=== PATIENT | female | born 1955 | race Caucasian/White ===

== ENCOUNTER 2020-05-12 11:06 | Day surgery (SDC) | payer OTHER ==
[~2020-05-12] VITALS: Ht 155 cm; Wt 58.0 kg
[2020-05-12] VITALS (10 sets, daily range): BP systolic 113–134; BP diastolic 54–97
[2020-05-12] MEDS ORDERED: NS IV 1000 ML 1,000 ML IV SCH ×2 (11:17→14:54)
[2020-05-12] MEDS ORDERED: HEParin (CATH LAB) 2,000 ML IV ONE (11:22)
[2020-05-12] MEDS ORDERED: NS IV 1000 ML 1,000 ML ONE (11:22)
[2020-05-12] MEDS ORDERED: LIDOCAINE 1% INJ 20 ML 20 ML VIAL ONE (11:22)
[2020-05-12 11:48] LABS: MEAN PLATELET VOLUME 10.5 FL (7.4-10.4); RED CELL DISTRIBUTION WIDTH 11.6 % (10.0-14.5); WHITE BLOOD COUNT 6.2 10^3/uL (4.3-11.0)
[2020-05-12] MEDS ORDERED: MV-M1TAB20 PO (11:53)
[2020-05-12] MEDS ORDERED: OMEP40CA27 PO (11:53)
[2020-05-12] MEDS ORDERED: LEVO50TA6 PO (11:53)
[2020-05-12] MEDS ORDERED: CYCL10TA9 PO (11:53)
[2020-05-12] MEDS ORDERED: FLUT9.9S NS (11:53)
[2020-05-12] MEDS ORDERED: ASPI-586 PO (11:53)
[2020-05-12] MEDS ORDERED: METO100T12 PO (11:53)
[2020-05-12] MEDS ORDERED: CLOP75TA69 PO (11:53)
[2020-05-12] MEDS ORDERED: CANA1TAB6 PO (11:53)
[2020-05-12] MEDS ORDERED: OMG1KC PO (11:53)
[2020-05-12 12:01] LABS: INR 0.9 (0.8-1.4); PROTHROMBIN TIME PATIENT 12.8 SEC (12.2-14.7)
[2020-05-12 12:08] LABS: ALANINE AMINOTRANSFERASE 38 U/L (0-55); ALBUMIN 4.7 GM/DL (3.2-4.5); ALKALINE PHOSPHATASE 76 U/L (40-136); BILIRUBIN,TOTAL 0.5 MG/DL (0.1-1.0); BUN/CREATININE RATIO 16; CALCIUM 9.9 MG/DL (8.5-10.1); CARBON DIOXIDE 30 MMOL/L (21-32); CHLORIDE 100 MMOL/L (98-107); CHOLESTEROL 287 MG/DL (< 200); CREATININE SERUM 0.93 MG/DL (0.60-1.30); GFR ESTIMATED > 60; GLUCOSE 134 MG/DL (70-105); HDL CHOLESTEROL 49 MG/DL (40-60); POTASSIUM 3.9 MMOL/L (3.6-5.0); SODIUM 140 MMOL/L (135-145); TOTAL PROTEIN 7.7 GM/DL (6.4-8.2); TRIGLYCERIDES 213 MG/DL (<150); VLDL CHOLESTEROL 43 MG/DL (5-40)
--- OUTSIDE RECORDS SUMMARY | 2020-05-12 13:01 | XMS REPORT | Continuity of Care Document ---
Author Author [facility] Organization [facility] Address [facility] [address] [place] [address] Phone Unavailable Support Name Relationship Address Phone MARY FLEMING MD Caregiver [address] [place] [address] CHARLIE MORTENSEN MD Caregiver [address] [place] [address] Unavailable DEVON CASTILLO MD Caregiver [address] [place] [address] LEILA GOOD Next Of Kin [address] [place] [address] NA Insurance Providers Payer Name Policy Number Subscriber Name Relationship Blue Cross/Blue Shield [id number] Will Good 01 [employer] Advance Directives Directive Response Recorded Date/Time Do you have an Advanced Directive? No 07/17 7:38am Advance Directives No 08/23/15 4:40pm Living Will No 08/23/15 4:40pm Health Care Proxy No 08/24/15 1:06pm Power of Retail Pharmacy Merchandiser for Health Care No 4:40pm Organ, Tissue, or Eye Donor No 08/23/15 4:4 0pm Do you have a signed organ donor card? No 0 04/06/01 7:18am Chief Complaint and Reason for Visit Chief Complaint CHEST PAIN,SHORTNESS OF EDWARD TH Reason for Visit Palpitations Shortness of breath Problems Active Problems Medical Problem Onset Date Status Chest pain Unknown Acute Gastroenteritis Unknown Acute Gastroenteritis Unknown Acute Medication side effects Unknown Acute Palpitations Unknown Acute Shortness of breath Unknown Acute Medications Current Home Medications Medication Dose Units Route Directions Days/Qty Instructions Star t Date Amlodipine Besylate 10 Mg 10 Mg Oral Daily 03/19/13 Omeprazole 40 Mg 40 Mg Oral Daily 3 Aspirin 81 Mg 81 Mg Oral Daily 08/21/15 Metformin Hcl 1 000 1,000 Mg Oral Twice A Day 60 08/21/15 Past Home Medications Medication Directions Ordered Status Metformin Hcl 1 000 Tablet, 1000 Mg Oral Twice A Day 4 Discontinued Ondansetron* 4 Mg/Tab Tab.rapdis, 4 Mg Oral Four Times Daily as needed for Nausea 11/03/14 Discontinued Promethazine Hcl 25 Mg Tablet, 25 Mg Oral As Needed Discontinued Acetaminophen/Hydrocodone Bitart (Lortab 7.5-325 Tab*) 1 Tab Tablet, 1 Each Oral Every 6 Hrs As Needed For Pain 04/10/15 Discontin ued Promethazine Hcl 25 Mg Tablet, 25 Mg Oral Twice A Day Discontinued Oxycodone Hcl/Acetaminophen* 1 Tab Tablet, 1-2 Ea Oral 3-4 Times Daily As Needed 04/17/15 Discontinued Promethazine Hcl 25 Mg Tablet, 25 Mg Oral Three Times Daily As N eeded 06/05/15 Discontinued Glimepiride 4 Mg Tablet, 4 Mg Oral Daily 08/21/15 Discontinued Social History Social History Problem Response Recorded Date/Ivan e Smoking Status Former smoker 08/24/2015 6:39pm Alcohol Use none 08/24/2015 1:38pm Sexual History Heterosexual 03/19/2013 7:25am Employment Employed 08/24/2015 6:39pm Query Response Start Date Stop Date Smoking Status Former smoker Hospital Discharge Instructions Discharge Instructions Provider Instructions Make Appointment with: Dr. Alamo [phone] Other: at [facility] Diet: Diabetic Smoking Cessation If you are a smoker, the following is recommended: Stop all tobacco use; for help quitting, please call [phone]. Notify Physician If: Shortness of Breath, Fever Greater 100.5 F, Chest Pain Plan of Care Discharge Date 08/25/15 10:22am Disposition 02 XFER SHT-TRM (ACUTE) HOSP Instructions/Education Provided 2 Gram Sodium Diet (GE N) Prescriptions See Medication Section Care Plan and Goals See Discharge Instructions S ection Functional Status Query Response Date Recorded [place] Coma Scale Total 15 August 25, 2015 1:18pm Patient Behavior Cooperative Appropriate August 24, 2015 9:04pm Allergies, Adverse Reactions, Alerts Allergen Type Severity Reaction Status Last Updated Morphine Allergy Unknown Active 08/24/15 Codeine Allergy Unknown Active 08/24/15 Tetracycline Allergy Unknown Active 08/24/15 Doxycycline Allergy Unknown Active 08/24/15 Clindamycin Allergy Unknown Active 08/24/15 Promethazine Allergy Unknown IV Active 08/24/15 Immunizations Name Given Type Hx Diphtheria, Pertussis, Tetanus Vaccination Unknown Historical Hx Influenza Vaccination No Historical Hx Pneumococcal Vaccination No Historical Vital Signs Acute Vital Signs Vital Response Date/Time Temperature (Fahrenheit) 97.7 degrees F (97.6 - 99.5) 2014 5:16am Temperature Source Temporal Artery 08/25/2015 5:16am Pulse Rate (adult) 74 bpm (60 - 90) 08/25/2015 1:18pm Respiratory Rate 20 bpm (12 - 24) 08/25/2015 1:18pm Blood Pressure 126/70 mm Hg 08/25/2015 11:03am O2 Sat by Pulse Oximetry 98 % (90 - 100) 08/25/2015 11:0 3am Oxygen Delivery Method 08/24/2015 4:33pm Oxygen Flow Rate 2.0 L/min 08/25/2015 11:03am Pain Intensity 0 08/25/2015 11:03am Pain Location Body Site Modifier 015 2:09pm Pain Description 08/24/2015 1:14pm Pain Duration 1-3 Hours 08/21/2015 7:38am Height 5 ft 1 in Weight 134 lb Body Mass Index 25.0 kg/m^2 Results Pending Laboratory Results Test Name Collection Date/Time Pending Microbiology Results Procedure Source Collection Date/Time Procedures Procedure Status Date Provider(s) DRAIN/INJ JOINT/BURSA W/O US Completed 06/05/15 PANCHO BARONE M.D. FIXATION OF SHOULDER Completed 06/05/15 OSKAR HUBBARD M.D. Portable x-ray of chest Active 08/21/15 Wander HERRERA MD Portable x-ray of chest Active 08/24/15 CHARLIE MORTENSEN MD Computed tomography angiography of chest without then with c ontrast Active 08/24/15 CHARLIE MORTENSEN MD Encounters Encounter Location Arrival/Admit Date Discharge/Depart Date Attending Provider Discharged Inpatient (obs) [place] 08/24/15 4:54pm 08/25/15 10 :22am DEVON CASTILLO MD Departed Emergency Room [place] 08/21/15 7:31am 08/21/15 10:27 am ZEINAB HERRERA MD Registered Referred [place] 07/14/15 3:08pm JUAN FRANCISCO BENDER Discharged Recurring [place] 06/10/15 3:47pm 06/19/15 3:47pm PANCHO DELUCA M.D. Registered [facility] [place] 06/05/15 6:12am PANCHO HUBBARD M.D. Discharged Recurring [place] 05/04/15 5:59am 08/24/15 10:41am BUTCH PATEL APRN Recent Diagnosis Palpitations Shortness of breath
--- OUTSIDE RECORDS SUMMARY | 2020-05-12 13:01 | XMS REPORT | Continuity of Care Document ---
Author Author [facility] Organization [facility] Address [facility] [address] [address] Phone Unavailable Support Name Relationship Address Phone OSCAR BORRERO MD Caregiver [address] [address] MARY FLEMING MD Caregiver [address] [address] ZEINAB HERRERA MD Caregiver [address] [place] [address] Unavailable LEILA GOOD Next Of Kin [address] [place] [address] NA Insurance Providers Payer Name Policy Number Subscriber Name Relationship Blue Cross/Blue Shield [id number] Will Good 01 Wif e Advance Directives Directive Response Recorded Date/Time Do you have an Advanced Directive? No 07/17 7:38am Advance Directives No 06/01/15 10:44am Living Will No 06/01/15 10:44am Health Care Proxy No 08/21/15 7:34am Power of Senior Asic Design Engineer for Health Care No 10:44am Organ, Tissue, or Eye Donor No 06/01/15 10: 44am Do you have a signed organ donor card? No 0 04/06/01 7:18am Chief Complaint and Reason for Visit Chief Complaint PALPITATIONS Reason for Visit Palpitations Problems Active Problems Medical Problem Onset Date Status Gastroenteritis Unknown Acute Gastroenteritis Unknown Acute Medication side effects Unknown Acute Palpitations Unknown Acute Medications Current Home Medications Medication Dose Units Route Directions Days/Qty Instructions Star t Date Amlodipine Besylate 10 Mg 10 Mg Oral Daily 03/19/13 Omeprazole 40 Mg 40 Mg Oral Daily 3 Aspirin 81 Mg 81 Mg Oral Daily 08/21/15 Glimepiride 4 Mg 4 Mg Oral Daily 5 Metformin Hcl 1 000 1,000 Mg Oral [...] Times Daily As N eeded 06/05/15 Discontinued Social History Social History Problem Response Recorded Date/Ivan e Smoking Status Former smoker 06/01/2015 10:44am Alcohol Use none 08/21/2015 8:05am Drug Use none 08/21/2015 8:05am Sexual History Heterosexual 03/19/2013 7:25am Query Response Start Date Stop Date Smoking Status Former smoker Hospital Discharge Instructions No hospital discharge instructions. Plan of Care Discharge Date 08/21/15 10:27am Condition at Discharge Stable Instructions/Education Provided Premature Ventricular Contractions (ED) Prescriptions See Medication Section Additional Instructions/Education follow up with Dr Jeffrey diehl as directed for results of Holter testing Functional Status Query Response Date Recorded [place] Coma Scale Total 15 August 21, 2015 7:38am Patient Behavior Cooperative Appropriate August 21, 2015 7:38am Allergies, Adverse Reactions, Alerts Allergen Type Severity Reaction Status Last Updated Morphine Allergy Unknown Active 08/21/15 Codeine Allergy Unknown Active 08/21/15 Tetracycline Allergy Unknown Active 08/21/15 Clindamycin Allergy Unknown Active 08/21/15 Promethazine Allergy Unknown IV Active 08/21/15 Immunizations Name Given Type Hx Diphtheria, Pertussis, Tetanus Vaccination Unknown Historical Hx Influenza Vaccination No Historical Hx Pneumococcal Vaccination No Historical Vital Signs Acute Vital Signs Vital Response Date/Time Temperature (Fahrenheit) 98.2 degrees F (97.6 - 99.5) 2014 10:23am Temperature Source Temporal Artery 08/21/2015 10:23am Pulse Rate (adult) 71 bpm (60 - 90) 08/21/2015 10:23am Respiratory Rate 16 bpm (12 - 24) 08/21/2015 10:23am Blood Pressure 150/75 mm Hg 08/21/2015 10:23am O2 Sat by Pulse Oximetry 97 % (90 - 100) 08/21/2015 10:2 3am Oxygen Delivery Method 08/21/2015 10:23a m Pain Intensity 1 08/21/2015 7:38am Pain Location Body Site Modifier 015 7:38am Pain Description 08/21/2015 7:38am Pain Duration 1-3 Hours 08/21/2015 7:38am Height [...] of chest Active 08/21/15 Wander HERRERA MD Encounters Encounter Location Arrival/Admit Date Discharge/Depart Date Attending Provider Departed Emergency Room [place] 08/21/15 7:31am 08/21/15 10:27 am ZEINAB HERRERA MD Registered Referred [place] 07/14/15 3:08pm JUAN FRANCISCO BENDER Discharged Recurring [place] 06/10/15 3:47pm 06/19/15 3:47pm M PANCHO SEALS M.D. Registered [facility] [place] 06/05/15 6:12am PANCHO HUBBARD M.D. Recent Diagnosis
--- OUTSIDE RECORDS SUMMARY | 2020-05-12 13:01 | XMS REPORT | Continuity of Care Document ---
Author Author [facility] Organization [facility] Address [facility] [address] [place] [address] Phone Unavailable Support Name Relationship Address Phone MARY FLEMING MD Caregiver [address] [place] [address] CHARLIE MORTENSEN MD Caregiver [address] [place] [address] Unavailable DEVON CASTILLO MD Caregiver [address] [place] [address] LEILA GOOD Next Of Kin [address] [place] [address] NA Insurance Providers Payer Name Policy Number Subscriber Name Relationship Blue Cross/Blue Shield [id number] Will Good 01 Wif e Advance Directives Directive Response Recorded Date/Time Do you have an Advanced Directive? No 07/17 7:38am Advance Directives No 08/23/15 4:40pm Living Will No 08/23/15 4:40pm Health Care Proxy No 08/24/15 1:06pm Power of Permit Technician for Health Care No 4:40pm Organ, Tissue, [...] Provider Instructions Make Appointment with: Dr. Alamo [phone] Other: at [facility] Diet: Diabetic Smoking Cessation If you are a smoker, the following is recommended: Stop all tobacco use; for help quitting, please call [phone]. Notify Physician If: Shortness of Breath, Fever Greater 100.5 F, Chest Pain Plan of Care Discharge Date 08/25/15 10:22am Disposition 70 XFER OTHER Instructions/Education Provided 2 Gram Sodium Diet (GE N) Prescriptions See Medication Section Care Plan and Goals See Discharge Instructions S ection Functional Status Query Response Date Recorded [place] Coma Scale Total 15 August 24, 2015 9:04pm Patient Behavior Cooperative Appropriate August 24, 2015 [...] Temporal Artery 08/25/2015 5:16am Pulse Rate (adult) 83 bpm (60 - 90) 08/25/2015 5:16am Respiratory Rate 20 bpm (12 - 24) 08/25/2015 5:16am Blood Pressure 138/74 mm Hg 08/25/2015 5:16am O2 Sat by Pulse Oximetry 98 % (90 - 100) 08/25/2015 5:16 am Oxygen Delivery Method 08/24/2015 4:33pm Oxygen Flow Rate 2.0 L/min 08/24/2015 9:04pm Pain Intensity 0 08/24/2015 4:40pm Pain Location Body Site Modifier 015 2:09pm [...] c ontrast Active 08/24/15 CHARLIE MORTENSEN MD Two dimensional echocardiography with M-mode and color flow imaging Active 08/24/15 DEVON CASTILLO MD Encounters Encounter Location Arrival/Admit Date Discharge/Depart Date Attending Provider Discharged Inpatient (obs) [place] 08/24/15 4:54pm 08/25/15 10 :22am DEVON CASTILLO MD Departed Emergency Room [place] 08/21/15 7:31am 08/21/15 10:27 am ZEINAB HERRERA MD Registered Referred [place] 07/14/15 3:08pm JUAN FRANCISCO BENDER Discharged Recurring [place] 06/10/15 3:47pm 06/19/15 3:47pm PANCHO DELUCA M.D. Registered [facility] [place] 06/05/15 6:12am PANCHO HUBBARD M.D. Recent Diagnosis Palpitations Shortness of breath
--- OUTSIDE RECORDS SUMMARY | 2020-05-12 13:01 | XMS REPORT | Continuity of Care Document ---
Author Author [facility] Organization [facility] Address [facility] [address] [place] [address] Phone Unavailable Support Name Relationship Address Phone BRUCE WISE APRN Caregiver [address] [place] [address] KYARA MEZA Caregiver [address] [place] [address] HENRIQUEWESTON PATIÑOARD Caregiver [address] [place] [address] LEILA GOOD Next Of Kin [address] [place] [phone] NA Insurance Providers Guarantor Alesia Good Address [address] [place] [address] Phone NA Email NO Payer Blue Cross/Blue Shield Policy Number [id number] Subscriber's Name Will Good Mitch Relationship 01 Group Number [id number] Group Name [employer] Advance Directives Directive Response Recorded Date/Time Do you have an Advanced Directive? No 07/17 7:38am Advance Directives No 04/02/18 12:46pm Living Will No 04/02/18 12:46pm Health Care Proxy No 05/29/18 2:54pm Power of Pulp Operator for Health Care No 12:46pm Organ, Tissue, or Eye Donor Yes 04/02/18 12: 46pm Do you have a signed organ donor card? No 0 04/06/01 7:18am Problems Medical Problem Onset Date Status Chest pain Unknown Acute Gastroenteritis Unknown Acute Gastroenteritis Unknown Acute Medication side effects Unknown Acute Palpitations Unknown Acute Shortness of breath Unknown Acute Past Problems Medical Problem Onset Date Status Diabetes Unknown Acute Diabetes Unknown Acute Elevated liver enzymes Unknown Acute Elevated liver enzymes Unknown Acute Hyponatremia Unknown Acute Pyelonephritis Unknown Acute Medications Current Home Medications Medication Dose Units Route Directions Days Qty Instructio ns Start Date Amlodipine Besylate (Norvasc 10 Mg Tab*) 10 Mg Tablet 10 Mg OR AL Daily Aspirin (Ecotrin 81 Mg Enteric Coated*) 81 Mg Tablet. 81 Mg ORAL Daily Clonazepam 0.5 Mg Tabs 0.5 Mg ORAL Three Times A Day as needed for Agitation Or Anxiety Escitalopram Oxalate (Lexapro*) 10 Mg Tablet 10 Mg ORAL Tasia ly 30 Tablet Magnesium Oxide (Magnesium) 400 Mg Tablet 200 Twice A Day Metformin Hcl (Riomet) 500 Mg/5 Ml Solution 1,000 Mg ORAL Twic e A Day Metoprolol Tartrate (Lopressor 25 Mg Tab*) 25 Mg Tab 25 Mg ORAL Twice A Day 60 Tablet Multivit With Calcium,Iron,Min* (One-A-Day Women's*) 1 Each Tablet 1 Ea ORAL Daily Omeprazole (Prilosec 40 Mg Cap*) 40 Mg Capsule. 20 Mg ORAL Daily Past Home Medications Medication Directions Ordered Status Acetaminophen/Hydrocodone Bitart ([place] 7.5-325 Tab*) 1 Tab Tablet, 1 Each Oral Every 6 Hrs As Needed For Pain Discontinued B12/Levomefolate Calcium/B-6 (Foltx Tablet) 1 Each Tablet, 1 000 Mcg Oral Daily Discontinued Cyclobenzaprine Hcl (Cyclobenzaprine Hcl*) 10 Mg Table t, 5 Mg Oral Three Times A Day as needed for Pain Discontinued Glimepiride (Amaryl 4 Mg Tab*) 4 Mg Tablet, 4 Mg Oral Daily Discontinued Hydrocodone/Acetaminophen (Hydrocodone-A cetamin 7.5-325) 1 Each Tablet, 1 Tab Oral Every 6 Hours As Needed for Pain Discont inued Ketorolac Tromethamine 10 Mg Tablet, 10 Mg Oral Every 6 Hours as needed for Pain Discontinued Magnesium Chloride (Slow-Mag*) 64 Mg Tablet.sa, 250 Mg Oral Mariella y Discontinued Metformin Hcl (Glucophage 1000 Mg*) 1 000 Tablet, 1000 Mg Or al Twice A Day 08/21/15 Discontinued Metformin Hcl (Glucophage 500 Mg*) 500 Mg Tablet, 1000 Mg Oral T wice A Day Discontinued Metformin Hcl (Glucophage 1000 Mg*) 1 000 Tablet, 1000 Mg Oral T wice A Day Discontinued Metformin Hcl 500 Mg Tabs , 1000 Mg Oral Twice A Day Discontinued Metoprolol Tartrate 25 Mg Tabs , 12.5 Mg Oral Twice A Day Discontinued Ondansetron* (Zofran Odt*) 4 Mg/Tab Tab.rapdis, 4 Mg O ral Four Times Daily as needed for Nausea 11/03/14 Discontinued Oxycodone Hcl/Acetaminophen* (Percocet 5 -325 Mg Tablet*) 1 Tab Tablet, 1-2 Ea Oral 3-4 Times Daily As Needed Discontinued Promethazine Hcl (Phenergan*) 25 Mg Tablet, 25 Mg Oral Three Times Daily As Needed Discontinued Promethazine Hcl (Phenergan*) 25 Mg Tablet, 25 Mg Oral Twice A D ay Discontinued Promethazine Hcl (Phenergan*) 25 Mg Tablet, 25 Mg Oral As Needed Discontinued Sulfamethoxazole/Trimethoprim (Sulfameth oxazole-Tmp Ds Tablet) 1 Each Tablet, 1 Ea Oral Twice A Day 04/04/18 Discontinued Social History Social History Problem Response Recorded Date/Time Onset Date Status Smoking Status Former smoker 06/06/2018 8:41am Not Applicable Not A pplicable Tobacco Use Denies Use 12/17/2017 10:11pm Not Applicable Not Alicia licable Sexual History Heterosexual 03/19/2013 7:25am Not Applicable Not Ap plicable Smoking Status Start Date Stop Date Former smoker Hospital Discharge Instructions No hospital discharge instruction information available. Plan of Care Discharge Date 06/07/18 10:50am Disposition 01 HOME, [facility] [place] Instructions/Education Provided Cystocele (DC) Prescriptions See Medication Section Functional Status Query Response Date Recorded Moshe Coma Scale Total 15 June 07, 2018 9:08am Patient Behavior Appropriate June 07, 2018 9:08am Allergies, Adverse Reactions, Alerts Allergen Type Severity Reaction Status Last Updated Morphine Allergy Unknown Active 04/02/18 Codeine Allergy Unknown Active 04/02/18 Tetracycline Allergy Unknown Active 04/02/18 Doxycycline Allergy Unknown Active 04/02/18 Clindamycin Allergy Unknown Active 04/02/18 Immunizations Query Response on File Recorded Date/Time Hx Diphtheria, Pertussis, Tetanus Vaccination Unknown 04/02/18 7:14am Hx Influenza Vaccination No 04/02/18 12:46p m Hx Pneumococcal Vaccination No 04/02/18 12: 46pm Vital Signs Acute Vital Signs Vital Response Date/Time Temperature (Fahrenheit) 98.3 degrees F (97.6 - 99.5) 2017 10:01am Temperature Source Temporal Artery 06/07/2018 10:01am Pulse Rate (adult) 71 bpm (60 - 90) 06/07/2018 10:01am Respiratory Rate 20 bpm (12 - 24) 06/07/2018 10:01am Blood Pressure 122/53 mm Hg 06/07/2018 10:01am O2 Sat by Pulse Oximetry 96 % (90 - 100) 06/07/2018 10:0 1am Oxygen Delivery Method Room Air 04/02/2018 12:24p m Pain Intensity 8 06/07/2018 5:58am Pain Intensity 4 04/04/2018 9:00am Pain Location Body Site Modifier Lower Medial 06/06/2018 6:57pm Pain Description Sharp Pressure 06/07/2018 9:42am Pain Duration 03/30/2018 04/02/2018 12:46pm Height 5 ft 1 in 05/29/2018 2:54pm Weight 128.99 lb 05/29/2018 2:54pm Body Mass Index 24.0 kg/m^2 05/29/2018 2:54pm Results Laboratory Results Test Name Result Units Flags Reference Collection Date/Time Result Date/Time Comments Hepatitis A IgM Antibody Negative Negative 03/30 10:40pm 04/03/2018 9:04am Hepatitis B Surface Antigen Negative Negative 10:40pm 04/03/2018 9:04am Hepatitis B Core IgM Antibody Negative Negative 03/30/2018 10:40pm 04/03/2018 9:04am Hepatitis C Antibody <0.1 s/co ratio 0.0-0.9 03/30/20 18 10:40pm 04/03/2018 9:04am Negati ve: < 0.8 Indeterminate: 0.8 - 0.9 Positive: > 0.9 The CDC recommends that a positive HCV antibody result be followed up with a HCV Nucleic Acid Amplification test (901635). Performed at: DA - [facility] [address], [place], [place] [id number] Creative Services Writer: SINA Hines MD, Phone: [phone] Prothrombin Time 9.7 SECONDS 9.10-11.20 04/02/2018 8:05am 11:39am Prothromb Time International Ratio 0.94 0.9-1 .1 04/02/2018 8:05am 04/02/2018 11:39am PLEASE NOTE REFERENCE RANGE Lactic Acid Level 1.4 mmol/L 0.4-2.0 04/02/2018 8:05am 05/0 05/2018 8:41am Phosphorus Level 2.0 mg/dL L 2.7-4.5 04/03/2018 6:45am 04/03 8:07am Magnesium Level 1.5 mg/dL L 1.8-2.4 04/03/2018 10:50am 04/03 11:09am Total Protein 6.6 gm/dL 6.4-8.2 04/04/2018 5:28am 04/04/20 18 6:05am Albumin 2.7 gm/dL L 3.4-5.0 04/04/2018 5:28am 04/04/2018 6:0 5am Total Bilirubin 0.43 mg/dL 0.00-1.00 04/04/2018 5:28am 05/0 07/2018 6:05am Direct Bilirubin 0.13 mg/dL 0.00-0.30 04/03/2018 10:50am 11:09am Indirect Bilirubin 0.38 mg/dL 0-0.70 04/03/2018 10:50am 11:09am Aspartate Amino Transf (AST/SGOT) 37 U/L 15-37 04/04/2018 5:28am 04/04/2018 6:05am Alanine Aminotransferase (ALT/SGPT) 113 U/L H 12-7 8 04/04/2018 5:28am 04/04/2018 6:05am Total Alkaline Phosphatase 192 U/L H 46-116 07/2018 5:28am 04/04/2018 6:05am Lipase 59 U/L L 65-230 04/02/2018 8:0504/02/2018 8:5 4am Total Creatine Kinase 50 U/L 26-192 04/02/2018 8:0504/02/2018 8:54am B-Type Natriuretic Peptide 222 pg/mL 10-227 05/2018 8:0504/02/2018 12:08pm 50-75 years of age NT-proBNP values <300 pg/mL have a 99% negative predictive value for excluding acute congestive heart failure (CHF). A cutoff of 1,200 pg/mL for patients with an eGFR <60 yields a diagnostic sensitivity and specificity of 89% and 72% for acute CHF. NT-proBNP values 900 pg/mL are consistent with CHF in adults 50-75 years of age in the absence of renal failure. Creatine Kinase MB 0.6 ng/mL 0-3.6 04/02/2018 8:05am 05/2018 8:54am Myoglobin 50.0 NG/ML 10.5-92.5 04/02/2018 8:0504/02/2018 8:54am Troponin I < 0.02 ng/mL 0.0-0.2 04/02/2018 8:05am 04/02/2018 8:54am Urine Renal Epithelial Cells NEGATIVE /hpf 0 04/02/2018 7:00am 04/02/2018 9:28am Urine Other Crystals NEGATIVE /hpf 0 04/02/2018 7:00am 04/02/2018 9:28am Urine Calcium Oxalate Crystals NEGATIVE /hpf 0 04/02/2018 7:00am 04/02/2018 9:28am Urine Uric Acid Crystals NEGTIVE /hpf 0 04/02/2018 7:00 am 04/02/2018 9:28am Urine Triple Phosphate Crystals NEGATIVE /hpf 0 04/02/2018 7:00am 04/02/2018 9:28am Urine Other Casts NEGATIVE /lpf 0 04/02/2018 7:00am 05/2018 9:28am Urine Hyaline Casts NEGATIVE /lpf 0 04/02/2018 7:00am 0 04/02/2018 9:28am Urine Fine Granular Casts NEGATIVE /lpf 0 04/02/2018 7: 00am 04/02/2018 9:28am Urine Coarse Granular Casts NEGATIVE /lpf 0 7:00am 04/02/2018 9:28am Urine Waxy Casts NEGATIVE /lpf 0 04/02/2018 7:00am 0505/2018 9:28am Urine Red Blood Cell Casts NEGATIVE /lpf 0 05/2018 7:00am 04/02/2018 9:28am Urine White Blood Cell Casts NEGATIVE /lpf 0 0 04/02/2018 7:00am 04/02/2018 9:28am Urine Amorphous Sediment 1+ H NEGATIVE 04/02/2018 12: 01pm 04/02/2018 12:58pm Urine Amorphous Sediment NEGATIVE NEGATIVE 04/02 7:00am 04/02/2018 9:28am Urine Trichomonas NEGATIVE NEGATIVE 04/02/2018 7:00am 9:28am Urine Yeast NEGATIVE NEGATIVE 04/02/2018 7:00am 04/02/20 18 9:28am Urine Sperm NEGATIVE NEGATIVE 04/02/2018 7:00am 04/02/20 18 9:28am Urine Transitional Epithelial Cells NEGATIVE /hpf 0 05/04/2018 9:04am 05/04/2018 9:32am Urine Color YELLOW YELLOW 06/06/2018 9:45am 06/06/2018 10:13am Urine Appearance CLEAR CLEAR 06/06/2018 9:45am 06/06 10:13am Urine Glucose (UA) NEGATIVE mg/dL NEGATIVE 06/06/2018 9:45am 06/06/2018 10:13am Urine Bilirubin NEGATIVE NEGATIVE 06/06/2018 9:45am 05/27 10:13am Urine Ketones NEGATIVE mg/dL NEGATIVE 06/06/2018 9:45am 2017 10:13am Urine Specific [place] 1.010 1.010-1.025 06/06 9:45am 06/06/2018 10:13am Urine Occult Blood NEGATIVE NEGATIVE 06/06/2018 9:45am 0 06/06/2018 10:13am Urine pH 7.5 5.0-8.0 06/06/2018 9:45am 06/06/2018 10 :13am Urine Protein NEGATIVE mg/dL NEGATIVE 06/06/2018 9:45am 2017 10:13am Urine Urobilinogen 0.2 mg/dL E.U./dL 0.2-1.0 06/06/2018 9:45am 06/06/2018 10:13am Urine Nitrate NEGATIVE NEGATIVE 06/06/2018 9:45am 2017 10:13am Urine Leukocyte Esterase NEGATIVE NEGATIVE 06/06 9:45am 06/06/2018 10:13am Urine RBC NEGATIVE /hpf 0 06/06/2018 9:45am 06/06/2018 10:29am Urine WBC NEGATIVE /hpf 0-4 06/06/2018 9:45am 06/06/2018 10:29am Urine Squamous Epithelial Cells 0-1 /hpf 0-1 06/06/2018 9:45am 06/06/2018 10:29am Urine Bacteria NEGATIVE NEGATIVE 06/06/2018 9:45am 06/06 10:29am Urine Mucus NEGATIVE NEGATIVE 06/06/2018 9:45am 06/06/20 18 10:29am White Blood Count 6.7 K/uL 4.8-10.8 05/27/2018 2:58pm 11/2017 3:13pm Red Blood Count 4.60 M/uL 4.20-5.40 05/27/2018 2:58pm 07/11/2017 3:13pm Hemoglobin 14.0 gm/dL 12.0-16.0 05/27/2018 2:58pm 8 3:13pm Hematocrit 41.7 % 37.0-47.0 05/27/2018 2:58pm 8 3:13pm Mean Corpuscular Volume 90.7 fL 81.0-99.0 05/27/2018 2:5 8pm 05/27/2018 3:13pm Mean Corpuscular Hemoglobin 30.4 pg 27.0-31.0 2:58pm 05/27/2018 3:13pm Mean Corpuscular Hemoglobin Concent 33.5 g/dL 30.0 -37.0 05/27/2018 2:58pm 05/27/2018 3:13pm Red Cell Distribution Width 13.2 % 11.5-14.5 2:58pm 05/27/2018 3:13pm Platelet Count 361 K/uL 130-400 05/27/2018 2:58pm 018 3:13pm Mean Platelet Volume 8.9 fL 7.4-10.4 05/27/2018 2:58pm 05/27/2018 3:13pm Neutrophils (%) (Auto) 55.1 % 42.2-75.2 05/27/2018 2:58 pm 05/27/2018 3:13pm Lymphocytes (%) (Auto) 33.0 % 20.5-51.1 05/27/2018 2:58 pm 05/27/2018 3:13pm Monocytes (%) (Auto) 5.7 % 0-10 05/27/2018 2:58pm 0 05/27/2018 3:13pm Eosinophils (%) (Auto) 3.0 % 0-3 05/27/2018 2:58pm 05/27/2018 3:13pm Basophils (%) (Auto) 3.3 % H 0.0-1.0 05/27/2018 2:58pm 0 05/27/2018 3:13pm Neutrophils # (Auto) 3.7 K/uL 2.0-6.9 05/27/2018 2:58pm 0 05/27/2018 3:13pm Lymphocytes # (Auto) 2.2 K/uL 1.2-3.4 05/27/2018 2:58pm 0 05/27/2018 3:13pm Monocytes # (Auto) 0.4 K/uL 0.1-0.6 05/27/2018 2:58pm 11/2017 3:13pm Eosinophils # (Auto) 0.2 K/uL 0.0-0.7 05/27/2018 2:58pm 0 05/27/2018 3:13pm Basophils # (Auto) 0.2 K/uL 0.0-0.2 05/27/2018 2:58pm 11/2017 3:13pm Random Glucose 128 mg/dL H 70-110 05/27/2018 2:58pm 018 3:43pm Blood Urea Nitrogen 14 mg/dL 7-18 05/27/2018 2:58pm 3:43pm Creatinine 0.7 mg/dL 0.55-1.02 05/27/2018 2:58pm 8 3:43pm Glomerular Filtration Rate Calc 85.1 mL/min 05/27/2018 2:58pm 05/27/2018 3:43pm Sodium Level 138 mEq/L 136-145 05/27/2018 2:58pm 8 3:43pm Potassium Level 4.0 mEq/L 3.5-5.0 05/27/2018 2:58pm 2017 3:43pm Chloride Level 99 mEq/L 98-107 05/27/2018 2:58pm 018 3:43pm Carbon Dioxide Level 33.2 mEq/L H 21-32 05/27/2018 2:58pm 0 05/27/2018 3:43pm Calcium Level 9.1 mg/dL 8.8-10.5 05/27/2018 2:58pm 018 3:43pm Urine Oval Fat Bodies NEGATIVE NEGATIVE 05/27/2018 2:58p m 05/27/2018 3:21pm Microbiology Results Procedure Source Organism/Result Collection Date/Time Result Kem e/Time Result Status Urine Culture Urine,Clean Catch ESCHERICHIA COLI 05/04/2018 9:04am 05/06/2018 7:33am Final Procedures Procedure Status Date Provider(s) CYSTOSCOPY & URETER CATHETER Completed 05/04/18 KYARA CHEN Combined anteroposterior colporrhaphy Completed 06/06/18 KYARA MEZA Portable x-ray of chest Completed 04/02/18 ELLIOT COSTA DO Computed tomography of abdomen and pelvis with contrast Complete d 04/02/18 ELLIOT COSTA DO US renal Completed 04/03/18 JOSI MAGALLANES MD Ultrasound of urinary bladder Completed 04/03/18 JOSHUA ALAS MD Bilateral retrograde pyelography Completed 05/04/18 KYARA MEZA Laparoscopic Camera Active 05/04/18 HANNA MEZA Encounters Encounter Location Arrival/Admit Date Discharge/Depart Date Attending Provider Discharged Inpatient (obs) [facility] [place] 06/06/18 12:29pm 06/07/18 1 0:50am KYARA MEZA Registered Clinic [facility] 05/27/18 2:53pm KYARA UREÑA [facility] 05/04/18 6:01am KYARA MEZA Registered Clinic [facility] 04/26/18 6:27pm KYARA UREÑA Discharged Inpatient [facility] 04/02/18 12:32pm 04/04/18 1:39pm JOSHUA MAGALLANES MD Departed Emergency Room [facility] 03/30/18 8:10pm 03/30/18 11:30 pm ORIANA SANCHEZ D.O.
--- OUTSIDE RECORDS SUMMARY | 2020-05-12 13:02 | XMS REPORT | Continuity of Care Document ---
Author Organization Unknown Address Unknown Phone Unavailable Allergies Active Description Code Type Severity Reaction Onset Reported/Identified Relationship to Patient Clinical Status Yes DOXYCYCLINE [id number] Drug Allergy N/A N/A Yes MORPHINE SULFATE [id number] Drug Allergy N/A N/A Yes PHENERGAN 04917605280 Drug Allerg y N/A N/A Medications Medication Packaging Start Date St op Date Route Dosage Sig NORVASC ORAL 04/28/20 14 ORAL daily METFORMIN HCL ORAL 04/28/2014 08/05/2014 ORAL 257358 twice daily AMLODIPINE BESYLATE Oral 05/15/2014 10/28/2014 Oral 3030 METFORMIN HCL ORAL 08/05/2014 ORAL 647629 twi ce daily NORVASC ORAL 10/27/20 14 ORAL 9090 daily AMLODIPINE BESYLATE Oral 10/28/2014 Oral 3030 PHENERGAN ORAL 201403/13/2015 ORAL 1010 every s ix hours NORVASC ORAL 03/10/20 15 08/26/2015 ORAL 3030 daily NORCO ORAL 03/10/2015 03/20/2015 ORAL 4040 every 6 hours METFORMIN HCL ORAL 03/10/2015 09/29/2015 ORAL 607977 twice daily PHENERGAN ORAL 201405/07/2015 ORAL 3030 every s ix hours PERCOCET ORAL 015 05/10/2015 ORAL 4040 every 6 hours PYRIDIUM ORAL 015 07/17/2015 ORAL 99 3 times a day CIPROFLOXACIN HCL ORAL 07/14/2015 07/21/2015 ORAL 1414 twice daily PRILOSEC OTC ORAL 08/04/2015 11/16/2015 ORAL 3030 daily GLIMEPIRIDE ORAL 06/201509/03/2015 ORAL 3030 daily METFORMIN HCL ORAL 09/29/2015 03/08/2016 ORAL 369497 twice daily PROMETHAZINE-CODEINE ORAL 10/26/2015 11/05/2015 ORAL 539048 every 6 hours NORVASC ORAL 10/26/20 15 10/27/2016 ORAL 3030 daily AZITHROMYCIN ORAL 10/26/2015 10/31/2015 ORAL 66 VITAMIN B-12 ORAL 11/16/2015 05/15/2018 ORAL 3030 daily PEPCID ORAL 5 ORAL 3030 at bedti me CLONAZEPAM ORAL 12/1602/20/2016 ORAL 4545 twice d aily LOPRESSOR ORAL 2015 ORAL 9090 twice da hans CLONAZEPAM ORAL 01/2106/12/2016 ORAL 4545 three t imes daily METFORMIN HCL ORAL 03/08/2016 06/20/2016 ORAL 628423 twice daily TUSSIONEX PENNKINETIC ER ORA L 04/12/2016 04/22/2016 ORAL 44 twice daily CLONAZEPAM ORAL 05/1309/23/2016 ORAL 6060 twice e ach day METFORMIN HCL ORAL 06/20/2016 05/05/2017 ORAL 659368 twice daily CLONAZEPAM ORAL 08/2411/30/2016 ORAL 6060 twice e ach day ASPIRIN EC ORAL 08/24 ORAL daily NORVASC ORAL 10/27/20 16 ORAL 9090 daily TRIAMCINOLONE ACETONIDE EXTE RNAL 11/30/2016 12/10/2016 EXTERNAL 1515 twice daily PRILOSEC OTC ORAL 11/30/2016 ORAL 3030 kali y NORVASC ORAL 11/30/19 17 05/05/2017 ORAL 9090 daily MAGNESIUM ORAL 201604/24/2018 ORAL CLONAZEPAM ORAL 11/3005/05/2017 ORAL 6060 twice e ach day NORVASC ORAL 05/05/20 17 ORAL 9090 daily METFORMIN HCL ORAL 05/05/2017 02/12/2018 ORAL 057066 twice daily CLONAZEPAM ORAL 05/0512/13/2017 ORAL 9090 three t imes daily ZOFRAN ODT 09/13 ORAL 30 3 times a day PROMETHAZINE HCL 09/13/2017 Oral 12 ever y six hours NORVASC 09/13/20 17 ORAL daily METOPROLOL TARTRATE 09/13/2017 N/A twic e daily MAGNESIUM 2016 ORAL daily MACROBID 017 ORAL 20 twice da hans CLONAZEPAM ORAL 11/13 ORAL 9090 three ti mes daily METFORMIN HCL ORAL 02/12/2018 02/19/2018 ORAL 080782 twice daily METFORMIN HCL ORAL 02/19/2018 ORAL 679709 twi ce daily NORCO ORAL 03/28/2018 04/24/2018 ORAL 2020 every 6 hours prn pain KETOROLAC TROMETHAMINE ORAL 03/28/2018 04/02/2018 ORAL 2020 CYCLOBENZAPRINE HCL ORAL 03/28/2018 04/07/2018 ORAL 3030 3 times a day LEXAPRO ORAL 04/16/20 18 ORAL 3030 daily NITROGLYCERIN Sublingual 04/24/2018 Sublingual MAGNESIUM ORAL 2017 ORAL twice da hans CENTRUM SILVER ORAL 04/24/2018 ORAL kali y MACRODANTIN ORAL 04/2705/15/2018 ORAL 1414 twice d aily TYLENOL ORAL 06/14/20 18 ORAL Problems There is no data. Procedures There is no data. Results Test Result Range Automated blood complete blood count ( mogram) panel - 05/12/20 11:42 Blood leukocytes automated count (number/volume) 6.2 10*3/uL 4.3-11.0 Blood erythrocytes automated count (number/volume) 4.49 10*6/uL 4.35-5.85 Venous blood hemoglobin measurement (mass/volume) 14.0 g/dL 11.5-16.0 Blood hematocrit (volume fraction) 41 % 35-52 Automated erythrocyte mean corpuscular volume 91 [ foz_us] 80-99 Automated erythrocyte mean corpuscular h emoglobin (mass per erythrocyte) 31 pg 25-34 Automated erythrocyte mean corpuscular h emoglobin concentration measurement (mass/volume) 34 g/dL 32-36 Automated erythrocyte distribution width ratio 11. 6 % 10.0- 14.5 Automated blood platelet count (count/volume) 282 10*3/uL 130-400 Automated blood platelet mean volume measurement 10.5 [foz_us] 7.4-10.4 PT panel in platelet poor plasma by coag ulation assay - 05/12/20 11:42 Prothrombin time (PT) in platelet poor plasma by coagu lation assay 12.8 s 12.2-14.7 INR in platelet poor plasma or blood by coagulation as say 0.9 0.8-1.4 Activated partial thromboplastin time (a PTT) in platelet poor plasma bycoagulation assay - 05/12/20 11:42 Activated partial thromboplastin time (a PTT) in platelet poor plasma bycoagulation assay 31 s 24-35 Comprehensive metabolic panel - 05/12/20 11:42 Serum or plasma sodium measurement (moles/volume) 140 mmol/L 135-145 Serum or plasma potassium measurement (moles/volume) 3.9 mmol/L 3.6-5.0 Serum or plasma chloride measurement (moles/volume) 100 mmol/L 98-107 Carbon dioxide 30 mmol/L 21-32 Serum or plasma anion gap determination (moles/volume) 10 mmol/L 5-14 Serum or plasma urea nitrogen measurement (mass/volume ) 15 mg/dL 7-18 Serum or plasma creatinine measurement (mass/volume) 0.93 mg/dL 0.60-1.30 Serum or plasma urea nitrogen/creatinine mass ratio 16 NRG Serum or plasma creatinine measurement w ith calculation of estimated glomerular filtration rate > NRG Serum or plasma glucose measurement (mass/volume) 134 mg/dL 70-105 Serum or plasma calcium measurement (mass/volume) 9.9 mg/dL 8.5-10.1 Serum or plasma total bilirubin measurement (mass/volu me) 0.5 mg/dL 0.1-1.0 Serum or plasma alkaline phosphatase angie surement (enzymatic activity/volume) 76 U/L 40-136 Serum or plasma aspartate aminotransfera se measurement (enzymatic activity/volume) 23 U/L 5-34 Serum or plasma alanine aminotransferase measurement (enzymatic activity/volume) 38 U/L 0-55 Serum or plasma protein measurement (mass/volume) 7.7 g/dL 6.4-8.2 Serum or plasma albumin measurement (mass/volume) 4.7 g/dL 3.2-4.5 Lipid 1996 panel - 05/12/20 11:42 Serum or plasma triglyceride measurement (mass/volume) 213 mg/dL <150 Serum or plasma cholesterol measurement (mass/volume) 287 mg/dL < 200 Serum or plasma cholesterol in HDL measurement (mass/v olume) 49 mg/dL 40-60 Cholesterol in LDL [mass/volume] in serum or plasma by direct assay 214 mg/dL 1-129 Serum or plasma cholesterol in VLDL measurement (mass/ volume) 43 mg/dL 5-40 Encounters ACCT No. Visit Date/Time Discharge Status Pt. Type Provider Facility Loc./Unit Complaint [id number] 05/01/2015 22:04:07 05/01/2015 22:04 :07 DIS Outpatient [id number] 10/28/2014 12:01:09 Document Registration [id number] 10/28/2014 12:01:07 Document Registration [id number] 10/28/2014 12:01:05 Document Registration [id number] 10/28/2014 12:01:04 Document Registration [id number] 10/28/2014 12:01:03 Document Registration [id number] 10/28/2014 12:01:02 Document Registration [id number] 10/28/2014 12:01:01 Document Registration [id number] 10/27/2014 14:13:13 Document Registration [id number] 10/27/2014 14:12:10 Document Registration [id number] 10/27/2014 14:12:09 Document Registration [id number] 10/27/2014 14:12:08 Document Registration [id number] 10/27/2014 14:12:06 Document Registration [id number] 10/27/2014 14:12:05 Document Registration [id number] 10/27/2014 14:12:04 Document Registration [id number] 10/27/2014 14:11:03 Document Registration [id number] 08/05/2014 18:52:04 Document Registration [id number] 08/05/2014 18:51:57 Document Registration [id number] 08/05/2014 18:51:49 Document Registration [id number] 08/05/2014 18:51:43 Document Registration [id number] 08/05/2014 18:51:38 Document Registration [id number] 08/05/2014 18:51:32 Document Registration [id number] 08/05/2014 18:51:25 Document Registration [id number] 08/05/2014 18:51:14 Document Registration [id number] 12/27/2017 18:25:49 Document Registration [id number] 05/12/2020 11:48:00 Document Registration [id number] 07/12/2018 11:28:54 07/12/2018 11:28 :55 DIS Outpatient [facility]
--- OUTSIDE RECORDS SUMMARY | 2020-05-12 13:02 | XMS REPORT | Continuity of Care Document ---
Author Author [facility] Organization [facility] Address [facility] [address] [place] [address] Phone Unavailable Support Name Relationship Address Phone FRAN GOMEZ MD Caregiver [address] [place] [address] LEILA GOOD Next Of Kin [address] [place] [address] NA Insurance Providers Payer Name Policy Number Subscriber Name Relationship [employer] Other [id number] Alesia Good 19 Self / Same As Patient Advance Directives Directive Response Recorded Date/Time Do you have an Advanced Directive? No 07/17 7:38am Advance Directives No 01/21/07 5:27pm Living Will No 01/21/07 5:27pm Health Care Proxy No 11/03/14 6:17am Power of Yard Laborer for Health Care No 5:27pm Organ, Tissue, or Eye Donor No 01/21/07 5:2 7pm Do you have a signed organ donor card? No 0 04/06/01 7:18am Problems Medical Problems Problem Onset Date Status Gastroenteritis Unknown Active Medication side effects Unknown Active Gastroenteritis Unknown Active Medications Medication Dose Route Sig Days/Qty Instructions Order Date Disc ontinued Date Status Amlodipine Besylate 10 Mg PO DAILY 03/19/13 Active Omeprazole 40 Mg PO DAILY 03/19/13 Acti ve Metformin HCl 1,000 Mg PO TWICE A DAY 60 Qty 11/03/14 Active Ondansetron* 4 Mg PO FOUR TIMES DAILY PRN NAUSEA 20 Qty 11/03/14 Active Social History Social History Problem Response Recorded Date/Ivan e Smoking Status Former smoker 03/19/2013 7:25am Sexual History Heterosexual 03/19/2013 7:25am Query Response Start Date Stop Date Smoking Status Former smoker Hospital Discharge Instructions No hospital discharge instructions. Plan of Care No plan of care. Functional Status Query Response Date Recorded Patient Behavior Cooperative Appropriate November 03, 2014 4:20am Allergies, Adverse Reactions, Alerts Allergen Type Severity Reaction Status Last Updated Morphine Allergy Unknown Active 01/07/09 Codeine Allergy Unknown Active 01/07/09 Tetracycline Allergy Unknown Active 01/07/09 Clindamycin Allergy Unknown Active 01/07/09 Promethazine Allergy Unknown IV Active 01/07/09 Immunizations Name Given Type Hx Diphtheria, Pertussis, Tetanus Vaccination Up To Date Historical Hx Influenza Vaccination No Historical Hx Pneumococcal Vaccination No Historical Vital Signs Acute Vital Signs Vital Response Date/Time Temperature (Fahrenheit) 97.3 degrees F (97.6 - 99.5) Temperature Source Temporal Artery Pulse Rate (adult) 64 bpm (60 - 90) Respiratory Rate 20 bpm (12 - 24) Blood Pressure 128/65 mm Hg O2 Sat by Pulse Oximetry 94 % (95 - 100) Oxygen Delivery Method Pain Intensity 4 Pain Location Body Site Modifier Pain Description Pain Duration > 6 Hours Height 5 ft 1 in Weight 136 lb Body Mass Index 25.0 kg/m^2 Results Test Source Date Result Interp. Ref. Range Comments Alanine Aminotransferase (ALT/SGPT) November 03, 2014 5:00am 53 U/L N 12-78 Albumin November 03, 2014 5:00am 3.8 gm/dL N 3.4-5 .0 Amylase Level March 14, 2002 8:52am 32 U/L N 25-1 15 Aspartate Amino Transf (AST/SGOT) November 03, 2014 5:00am 2 1 U/L N 15-37 Basophils # (Auto) November 03, 2014 5:00am 0.1 K/uL N 0.0-0.2 Basophils (%) (Auto) November 03, 2014 5:00am 2.2 % H 0.0-1.0 Blood Urea Nitrogen November 03, 2014 5:00am 10 mg/dL N 7-18 Calcium Level November 03, 2014 5:00am 8.9 mg/dL N 8 .8-10.5 Carbon Dioxide Level November 03, 2014 5:00am 28.9 mEq/L N 21-32 Chloride Level November 03, 2014 5:00am 99 mEq/L N 98-107 Cholesterol Level July 06, 2013 6:28am 249 mg/dL H 120-200 Creatine Kinase MB March 19, 2013 7:33am 1.9 NG/ML N 0-3.6 Creatinine November 03, 2014 5:00am 0.8 mg/dL N 0.6- 1.0 Eosinophils # (Auto) November 03, 2014 5:00am 0.1 K/uL N 0.0-0.7 Eosinophils (%) (Auto) November 03, 2014 5:00am 2.2 % H 0.0-2.0 Eosinophils (Manual) November 22, 2003 4:57pm 1.0 % N 0-3 Erythrocyte Sedimentation Rate October 15, 2009 3:22pm 34 m m/hr H 0-20 Glomerular Filtration Rate Calc November 03, 2014 5:00am 7 8.3 mL/min N 60.0-128.0 HDL Cholesterol July 06, 2013 6:28am 43 mg/dL N 3 5-60 Helicobacter pylori Antigen Screen March 06, 2003 11:47am Ne gative - Hematocrit November 03, 2014 5:00am 38.9 % N 37.0 -47.0 Hemoglobin November 03, 2014 5:00am 13.8 gm/dL N 12. 0-16.0 Hemoglobin A1c October 07, 2013 4:29am 6.5 % H 4.8-6.0 PLEASE FAX RESULTS TO [phone] Hepatitis B Surface Antibody December 20, 2005 10:34am Sent t o ref lab - Homocysteine June 04, 2007 10:54am 2.5 umol/L L - Performed At: [facility] [address] [id number] Sherine Lenz PhD Phone: [phone] LDL Cholesterol July 06, 2013 6:28am 176 mg/dL H 0 -130 Lipase November 03, 2014 5:00am 90 U/L N 65-23 0 Lymphocytes # (Auto) November 03, 2014 5:00am 1.8 K/uL N 1.2-3.4 Lymphocytes (%) (Auto) November 03, 2014 5:00am 36.2 % N 20.5-51.1 Lymphocytes (Manual) November 22, 2003 4:57pm 4.0 % L 25-40 Magnesium Level January 21, 2007 12:00am 1.8 mg/dL N 1.8-2.4 Mean Corpuscular Hemoglobin November 03, 2014 5:00am 30.9 pg N 27.0-31.0 Mean Corpuscular Hemoglobin Concent November 03, 2014 5:00 am 35.5 g/dL N 30.0-37.0 Mean Corpuscular Volume November 03, 2014 5:00am 87.1 fL N 81.0-99.0 Mean Platelet Volume November 03, 2014 5:00am 8.0 fL N 7.4-10.4 Monocytes # (Auto) November 03, 2014 5:00am 0.4 K/uL N 0.1-0.6 Monocytes (%) (Auto) November 03, 2014 5:00am 8.4 % N 1.7-9.3 Monocytes (Manual) November 22, 2003 4:57pm 1.0 % L 4-10 Myoglobin March 19, 2013 7:33am 23.0 NG/ML N 10.5-92 .5 Neutrophils November 22, 2003 4:57pm 94.0 % H 50- 65 Neutrophils # (Auto) November 03, 2014 5:00am 2.5 K/uL N 2.0-6.9 Neutrophils (%) (Auto) November 03, 2014 5:00am 51.0 % N 42.2-75.2 Platelet Count November 03, 2014 5:00am 306 K/uL N 130-400 Potassium Level November 03, 2014 5:00am 4.1 mEq/L N 3.5-5.0 Random Glucose November 03, 2014 5:00am 188 mg/dL H 70-110 Red Blood Count November 03, 2014 5:00am 4.47 M/uL N 4.20-5.40 Red Cell Distribution Width November 03, 2014 5:00am 10.0 % L 11.5-14.5 Rubella Antibody December 20, 2005 10:34am Sent to [facility] lab - Sodium Level November 03, 2014 5:00am 136 mEq/L N 13 6-145 Thyroid Stimulating Hormone (TSH) January 22, 2012 9:17am 2.50 uIU/ml N 0.34-4.82 Total Alkaline Phosphatase November 03, 2014 5:00am 140 U/L H 50-136 Total Bilirubin November 03, 2014 5:00am 0.30 mg/dL N 0.00-1.00 Total Creatine Kinase March 19, 2013 7:33am 113 U/L N 26-192 Total Protein November 03, 2014 5:00am 7.2 gm/dL N 6 .4-8.2 Triglycerides Level July 06, 2013 6:28am 149 mg/dL N 30-200 Troponin I March 19, 2013 7:33am 0.0 NG/ML N 0.0-0.2 Uric Acid May 05, 2010 8:28am 4.4 mg/dL N 2.6-6.0 Urine Amorphous Sediment July 06, 2013 6:28am Trace H - Urine Appearance November 03, 2014 5:55am Clear - Urine Bacteria November 03, 2014 5:55am Negative - Urine Bilirubin November 03, 2014 5:55am Negative - Urine Color November 03, 2014 5:55am Lt. yellow - Urine Glucose (UA) November 03, 2014 5:55am Negative mg/dL - Urine HCG, Qualitative March 11, 2003 8:29am Negative - Urine Hyaline Casts December 03, 2004 4:29am 1-2 /lpf H - Urine Ketones November 03, 2014 5:55am Negative mg/dL - Urine Leukocyte Esterase November 03, 2014 5:55am Negative - Urine Mucus December 03, 2004 4:29am Moderate H - Urine Nitrate November 03, 2014 5:55am Negative - Urine Occult Blood November 03, 2014 5:55am Negative - Urine Protein November 03, 2014 5:55am Negative mg/dL - Urine RBC November 03, 2014 5:55am Negative /hpf - Urine Random Microalbumin July 06, 2013 1:41pm Microalbumin, Random UrineMicroalbumin, Urine <3.0 ug/mL 0.0 - 17.0 Verified by repeat analysis - Urine Specific [place] November 03, 2014 5:55am 1.015 N 1.010-1.025 Urine Squamous Epithelial Cells November 03, 2014 5:55am 0-1 /hpf - Urine Urobilinogen November 03, 2014 5:55am 0.2 E.U./dL - Urine WBC November 03, 2014 5:55am Negative /hpf - Urine pH November 03, 2014 5:55am 6.5 - Vitamin D 1,25-Dihydroxy Total July 06, 2013 6:28am 88.8 p g/mL H - Performed at: - [facility] [id number] Senior Product Development Scientist: Samy Milian MD, Phone: [phone] Vitamin D 25-Hydroxy January 22, 2012 9:17am 9.4 l ng/ml - LIMITS LAB30.0-100.0 01 Vitamin D deficiency has been defined by the [employer] of Medicine and an EndocrineSociety practice guideline as a level of serum 25-OH vitamin D less than 20ng/mL (1,2). The Endocrine Society went on to further define vitamin D insufficiency as a level between 21 and 29 ng/mL. (2). 1. IOM ([place] of Medicine). 2011. Di etary reference intakes for calcium and D. [place]: The National Academies Press. 2. Mark MF, Izzy WANG, Navjot argueta VU, et al. Evaluation, treatment, and prevention of vitamin D deficiency: an Endocrine Society clinical practice guideline. JCEM. 2010; 96(7):1911-30. LAB: [facility] [place] assistant: Madeline Sharp MD [address] [place] [phone] White Blood Count November 03, 2014 5:00am 4.9 K/uL N 4.8-10.8 Procedures Procedure Status Date Provider(s) Magnetic resonance imaging of joint of right upper ext remity without contrast completed 10/10/14 CLARK CLAROS Encounters Encounter Location Date/Time Departed Emergency Room [facility] 11/[facility]/14 4:25am Registered [facility] 10/10/14 7:45am Recent Diagnosis
--- OUTSIDE RECORDS SUMMARY | 2020-05-12 13:02 | XMS REPORT | Continuity of Care Document ---
Author Author [facility] Organization [facility] Address [facility] [address] [place] [address] Phone Unavailable Support Name Relationship Address Phone BRUCE WISE APRN Caregiver [address] [place] [address] ELLIOT COSTA DO Caregiver [address] [place] [address] JOSHUA MAGALLANES MD Caregiver [address] [place] [address] JOSHUA MAGALLANES MD Caregiver [address] [place] [address] LEILA GOOD Next Of Kin [address] [place] [address] NA Insurance Providers Guarantor Alesia Good Address [address] [place] [address] Phone NA Email NO Payer Blue Cross/Blue Shield Policy Number [id number] Subscriber's Name FahadpremaWill Mitch Relationship 01 Group Number [id number] Group Name [employer] Advance Directives Directive Response Recorded Date/Time Do you have an Advanced Directive? No 07/17 7:38am Advance Directives No 04/02/18 12:46pm Living Will No 04/02/18 12:46pm Health Care Proxy No 04/02/18 12:46pm Power of Size Changer for Health Care No 12:46pm Organ, Tissue, or Eye Donor Yes 04/02/18 12: 46pm Do you have a signed organ donor card? No 0 04/06/01 7:18am Chief Complaint and Reason for Visit Chief Complaint PYELONEPHRITIS Reason for Visit Palpitations Shortness of breath Problems Medical Problem Onset Date Status Chest [...] (Ecotrin 81 Mg Enteric Coated*) 81 Mg Tablet.dr 81 Mg ORAL Daily Clonazepam 0.5 Mg Tabs 0.5 Mg ORAL Three Times A Day as needed for Agitation Or Anxiety Metoprolol Tartrate (Lopressor 25 Mg Tab*) 25 Mg Tab 25 Mg ORAL Twice A Day 60 Tablet Omeprazole (Prilosec 40 Mg Cap*) 40 Mg Capsule.dr 20 Mg ORAL Daily Sulfamethoxazole/Trimethoprim (Sulfamethoxazole-Tmp Ds Table t) 1 Each Tablet 1 Ea ORAL Twice A Day 7 Days 14 Tablet 04/04/18 Past Home Medications Medication Directions Ordered Status Acetaminophen/Hydrocodone Bitart (Silver 7.5-325 Tab*) 1 Tab Tablet, 1 Each [...] Day Discontinued Ondansetron* (Zofran Odt*) 4 Mg/Tab Tab.sushant 4 Mg O ral Four Times Daily [...] Tablet, 25 Mg Oral As Needed Discontinued Social History Social History Problem Response Recorded Date/Time Onset Date Status Smoking Status Former smoker 04/02/2018 12:46pm Not Applicable Not Applicable Tobacco Use Denies Use 12/17/2017 10:11pm Not Applicable Not Alicia licable Alcohol Use none 04/02/2018 7:54am Not Applicable Not Appl icable Sexual History Heterosexual 03/19/2013 7:25am Not Applicable Not Ap plicable Smoking Status Start Date Stop Date Former smoker Hospital Discharge Instructions No hospital discharge instruction information available. Plan of Care Discharge Date 04/04/18 1:39pm Disposition 01 HOME, [facility],ASSISTED [facility] Instructions/Education Provided Chronic Urinary Retent ion in Women (DC) Prescriptions See Medication Section Functional Status Query Response Date Recorded Moshe Coma Scale Total 15 April 04, 2018 9:45am Patient Behavior Cooperative April 04, 2018 9:45am Allergies, Adverse Reactions, Alerts Allergen Type Severity [...] Vital Signs Vital Response Date/Time Temperature (Fahrenheit) 98.0 degrees F (97.6 - 99.5) 2017 10:13am Temperature Source Oral 04/04/2018 10:13am Pulse Rate (adult) 70 bpm (60 - 90) 04/04/2018 10:13am Respiratory Rate 16 bpm (12 - 24) 04/04/2018 10:13am Blood Pressure 133/50 mm Hg 04/04/2018 10:13am O2 Sat by Pulse Oximetry 95 % (90 - 100) 04/04/2018 10:1 3am Oxygen Delivery Method Room Air 04/02/2018 12:24p m Pain Intensity 6 04/03/2018 9:39am Pain Intensity 4 04/04/2018 9:00am Pain Location Body Site Modifier Left 018 9:00am Pain Description Aching 04/04/2018 12:17am Pain Duration 03/30/2018 04/02/2018 12:46pm Height 5 ft 1 in 04/02/2018 7:14am Weight 134.48 lb 04/02/2018 7:14am Body Mass Index 25.0 kg/m^2 04/02/2018 12:46pm Results Laboratory Results Test Name Result Units Flags Reference Collection Date/Time Result Date/Time Comments Cholesterol Level 276 mg/dL H 120-200 01/04/2018 10:18am 06/2018 5:58pm Triglycerides Level 198 mg/dL 30-200 01/04/2018 10:18am 0 01/04/2018 5:58pm HDL Cholesterol 52 mg/dL 35-60 01/04/2018 10:18am 01/04 5:58pm LDL Cholesterol 184 mg/dL H 0-130 01/04/2018 10:18am 01/04 5:58pm Hepatitis A IgM Antibody Negative Negative 03/30 [...] with a HCV Nucleic Acid Amplification test ([id number]). Performed at: DA - [facility], [place] [id number] Fagot Maker: SINA Hines MD, Phone: [phone] White Blood Count 5.7 K/uL 4.8-10.8 04/04/2018 5:07/2018 5:50am Red Blood Count 3.72 M/uL L 4.20-5.40 04/04/2018 5:28am 05/0 07/2018 5:50am Hemoglobin 11.2 gm/dL L 12.0-16.0 04/04/2018 5: 8 5:50am Hematocrit 33.0 % L 37.0-47.0 04/04/2018 5: 8 5:50am Mean Corpuscular Volume 88.8 fL 81.0-99.0 04/04/2018 5:2 8am 04/04/2018 5:50am Mean Corpuscular Hemoglobin 30.1 pg 27.0-31.0 5:04/04/2018 5:50am Mean Corpuscular Hemoglobin Concent 33.8 g/dL 30.0 -37.0 04/04/2018 5:04/04/2018 5:50am Red Cell Distribution Width 12.1 % 11.5-14.5 5:04/04/2018 5:50am Platelet Count 294 K/uL 130-400 04/04/2018 5: 018 5:50am Mean Platelet Volume 9.5 fL 7.4-10.4 04/04/2018 5:04/04/2018 5:50am Neutrophils (%) (Auto) 61.1 % 42.2-75.2 04/04/2018 5: am 04/04/2018 5:50am Lymphocytes (%) (Auto) 27.3 % 20.5-51.1 04/04/2018 5: am 04/04/2018 5:50am Monocytes (%) (Auto) 9.6 % 0-10 04/04/2018 5:28am 0 04/04/2018 5:50am Eosinophils (%) (Auto) 1.4 % 0-3 04/04/2018 5:04/04/2018 5:50am Basophils (%) (Auto) 0.7 % 0.0-1.0 04/04/2018 5:28am 0 04/04/2018 5:50am Neutrophils # (Auto) 3.5 K/uL 2.0-6.9 04/04/2018 5:28am 0 04/04/2018 5:50am Lymphocytes # (Auto) 1.6 K/uL 1.2-3.4 04/04/2018 5:28am 0 04/04/2018 5:50am Monocytes # (Auto) 0.6 K/uL 0.1-0.6 04/04/2018 5:28am 07/2018 5:50am Eosinophils # (Auto) 0.1 K/uL 0.0-0.7 04/04/2018 5:28am 0 04/04/2018 5:50am Basophils # (Auto) 0.0 K/uL 0.0-0.2 04/04/2018 5:28am 07/2018 5:50am Prothrombin Time 9.7 SECONDS 9.10-11.20 04/02/2018 8:05am 11:39am Prothromb Time International Ratio 0.94 0.9-1 .1 04/02/2018 8:05am 04/02/2018 11:39am PLEASE NOTE REFERENCE RANGE Random Glucose 128 mg/dL H 70-110 04/04/2018 5:28am 018 6:05am Lactic Acid Level 1.4 mmol/L 0.4-2.0 04/02/2018 8:05am 0505/2018 8:41am Blood Urea Nitrogen 5 mg/dL L 7-18 04/04/2018 5:28 6:05am Creatinine 0.6 mg/dL 0.55-1.02 04/04/2018 5: 8 6:05am Glomerular Filtration Rate Calc 101.6 mL/min 04/04/2018 5:2804/04/2018 6:05am Sodium Level 138 mEq/L 136-145 04/04/2018 5:28 8 6:05am Potassium Level 3.1 mEq/L L 3.5-5.0 04/04/2018 5:282017 6:05am Chloride Level 99 mEq/L 98-107 04/04/2018 5:28am 018 6:05am Carbon Dioxide Level 29.3 mEq/L 21-32 04/04/2018 5:28am 0 04/04/2018 6:05am Calcium Level 8.5 mg/dL L 8.8-10.5 04/04/2018 5:28am 018 6:05am Phosphorus Level 2.0 mg/dL L 2.7-4.5 04/03/2018 [...] 6:05am Lipase 59 U/L L 65-230 04/02/2018 8:05am 04/02/2018 8:5 4am Total Creatine Kinase 50 U/L 26-192 04/02/2018 8:05am 04/02/2018 8:54am B-Type Natriuretic Peptide 222 pg/mL 10-227 05/2018 8:05am 04/02/2018 12:08pm 50-75 years of age NT-proBNP values [...] Troponin I < 0.02 ng/mL 0.0-0.2 04/02/2018 8:04/02/2018 8:54am Urine Color YELLOW YELLOW 04/02/2018 12:01pm 8 12:55pm Urine Appearance CLEAR CLEAR 04/02/2018 12:01pm 05/2018 12:55pm Urine Glucose (UA) NEGATIVE mg/dL NEGATIVE 04/02/2018 12:01pm 04/02/2018 12:55pm Urine Bilirubin NEGATIVE NEGATIVE 04/02/2018 12:01pm 05/2018 12:55pm Urine Ketones 2+ (40 mg/dl) mg/dL H NEGATIVE 04/02/2018 1 2:01pm 04/02/2018 12:55pm Urine Specific Alexis <= 1.005 L 1.010-1.025 04/02 12:01pm 04/02/2018 12:55pm Urine Occult Blood 1+ (Small) H NEGATIVE 04/02/2018 12:01pm 04/02/2018 12:55pm URINE CULTURE ORDERED PER MEDICAL STAFF- APPROVED PROTOCOL FOR LAB. Urine pH 5.5 5.0-8.0 04/02/2018 12:01pm 04/02/2018 1 2:55pm Urine Protein NEGATIVE mg/dL NEGATIVE 04/02/2018 12:01pm 04/02 12:55pm Urine Urobilinogen 0.2 mg/dL E.U./dL 0.2-1.0 04/02/2018 12:01pm 04/02/2018 12:55pm Urine Nitrate POSITIVE H NEGATIVE 04/02/2018 12:01pm 04/02 12:55pm Urine Leukocyte Esterase NEGATIVE NEGATIVE 04/02 12:01pm 04/02/2018 12:55pm Urine RBC NEGATIVE /hpf 0 04/02/2018 12:01pm 04/02/2018 12:58pm Urine WBC 1-2 /hpf 0-4 04/02/2018 12:01pm 04/02/2018 12:58pm Urine Squamous Epithelial Cells 0-1 /hpf 0-1 04/02/2018 12:01pm 04/02/2018 12:58pm Urine Transitional Epithelial Cells NEGATIVE /hpf 0 04/02/2018 7:00am 04/02/2018 9:28am Urine Renal Epithelial Cells NEGATIVE /hpf 0 04/02/2018 7:00am 04/02/2018 9:28am Urine Other Crystals NEGATIVE /hpf 0 04/02/2018 7:00am 04/02/2018 9:28am Urine Calcium Oxalate Crystals NEGATIVE /hpf 0 04/02/2018 7:00am 04/02/2018 9:28am Urine Uric Acid Crystals NEGTIVE /hpf 0 04/02/2018 7:00 am 04/02/2018 9:28am Urine Triple Phosphate Crystals NEGATIVE /hpf 0 04/02/2018 7:00am 04/02/2018 9:28am Urine Bacteria NEGATIVE NEGATIVE 04/02/2018 12:01pm 05/2018 12:58pm Urine Other Casts NEGATIVE /lpf 0 04/02/2018 7:00am 05/2018 9:28am Urine Hyaline Casts NEGATIVE /lpf 0 04/02/2018 7:00am 0 04/02/2018 9:28am Urine Fine Granular Casts NEGATIVE /lpf 0 04/02/2018 7: 00am 04/02/2018 9:28am Urine Coarse Granular Casts NEGATIVE /lpf 0 7:00am 04/02/2018 9:28am Urine Waxy Casts NEGATIVE /lpf 0 04/02/2018 7:00am 050 05/2018 9:28am Urine Red Blood Cell Casts NEGATIVE /lpf 0 05/2018 7:00am 04/02/2018 9:28am Urine White Blood Cell Casts NEGATIVE /lpf 0 0 04/02/2018 7:00am 04/02/2018 9:28am Urine Mucus FEW H NEGATIVE 04/02/2018 7:00am 8 9:28am Urine Amorphous Sediment 1+ H NEGATIVE 04/02/2018 12: 01pm 04/02/2018 12:58pm Urine Amorphous Sediment NEGATIVE NEGATIVE 04/02 7:00am 04/02/2018 9:28am Urine Trichomonas NEGATIVE NEGATIVE 04/02/2018 7:00am 9:28am Urine Yeast NEGATIVE NEGATIVE 04/02/2018 7:00am 04/02/20 18 9:28am Urine Sperm NEGATIVE NEGATIVE 04/02/2018 7:00am 04/02/20 18 9:28am Urine Oval Fat Bodies NEGATIVE NEGATIVE 04/02/2018 7:00a m 04/02/2018 9:28am Microbiology Results Procedure Source Organism/Result Collection Date/Time Result Kem e/Time Result Status Blood Culture Blood NO GROWTH AFTER 2 DAYS 04/02/2018 8:05am 07/2018 8:19am Preliminary Urine Culture Urine,Clean Catch ESCHERICHIA COLI 04/02/2018 7:00am 04/04/2018 7:42am Final Procedures Procedure Status Date Provider(s) Radionuclide resting and stress myocardi al perfusion scan with ejectionfraction and wall motion, multiple studies Completed 01/04/18 OTHER NOT ON STAFF Two dimensional echocardiography with M-mode and color flow imaging Completed 01/04/18 JENI DAS Portable x-ray of chest Completed 04/02/18 ELLIOT COSTA DO Computed tomography of abdomen and pelvis with contrast Complete d 04/02/18 ELLIOT COSTA DO US renal Completed 04/03/18 JOSI MAGALLANES MD Ultrasound of urinary bladder Completed 04/03/18 JOSHUA ALAS MD Encounters Encounter Location Arrival/Admit Date Discharge/Depart Date Attending Provider Discharged Inpatient [facility] 04/02/18 12:32pm 04/04/18 1:39pm JOSHUA MAGALLANES MD Departed Emergency Room [place] 03/30/18 8:10pm 03/30/18 11:30 pm ORIANA SANCHEZ D.O. Registered Clinic [facility] 01/04/18 7:14am JENI DAS Recent Diagnosis Palpitations Shortness of breath
--- OUTSIDE RECORDS SUMMARY | 2020-05-12 13:02 | XMS REPORT | Continuity of Care Document ---
Author Author [facility] Organization [facility] Address [facility] [address] [place] [address] Phone Unavailable Support Name Relationship Address Phone MARY FLEMING MD Caregiver [address] [place] [address] MIREYA ACEVEDO MD Caregiver [address] [place] [address] MIREYA ACEVEDO MD Caregiver [address] [place] [address] GUY BEVERLY DO Caregiver [address] [place], [place] [id number] Unavailable LEILA GOOD Next Of Kin [address] [place] [address] NA Insurance Providers Guarantor Alesia Good Address [address] [place] [address] Phone NA Email NO Payer Blue Cross/Blue Shield Policy Number [id number] Subscriber's Name Will Good Mitch Relationship 01 Group Number [id number] Group Name [employer] Advance Directives Directive Response Recorded Date/Time Do you have an Advanced Directive? No 07/17 7:38am Advance Directives No 12/17/17 11:35pm Living Will No 12/17/17 11:35pm Health Care Proxy No 12/17/17 11:35pm Power of Shear Assembler for Health Care No 11:35pm Organ, Tissue, or Eye Donor Yes 12/17/17 11: 35pm Do you have a signed organ donor card? No 0 04/06/01 7:18am Chief Complaint and Reason for Visit Chief Complaint CHEST PAIN Reason for Visit Chest pain Problems Medical Problem Onset Date Status Chest [...] 81 Mg Tablet. 81 Mg ORAL Daily B12/Levomefolate Calcium/B-6 (Foltx Tablet) 1 Each Tablet 1,000 Mcg ORAL Daily Clonazepam 0.5 Mg Tabs 0.5 Mg ORAL Three Times A Day as needed for Agitation Or Anxiety Magnesium Chloride (Slow-Mag*) 64 Mg Tablet.sa 250 Mg ORAL D aily Metformin Hcl (Glucophage 1000 Mg*) 1 000 Tablet 1,000 Mg O RAL Twice A Day 60 Tablet 08/21/15 Metformin Hcl 500 Mg Tabs 1,000 Mg ORAL Twice A Day Metoprolol Tartrate 25 Mg Tabs 12.5 Mg ORAL Twice A Day Omeprazole (Prilosec 40 Mg Cap*) 40 Mg Capsule. 20 Mg ORAL Daily Past Home Medications Medication Directions Ordered Status Acetaminophen/Hydrocodone Bitart ([place] 7.5-325 Tab*) 1 Tab Tablet, 1 Each Oral Every 6 Hrs As Needed For Pain Discontinued Glimepiride (Amaryl 4 Mg Tab*) 4 Mg Tablet, 4 Mg Oral Daily Discontinued Metformin Hcl (Glucophage 1000 Mg*) 1 000 Tablet, 1000 Mg Oral T wice A Day Discontinued Ondansetron* (Zofran Odt*) 4 [...] Onset Date Status Smoking Status Former smoker 12/17/2017 11:35pm Not Applicable Not Applicable Tobacco Use Denies Use 12/17/2017 10:11pm Not Applicable Not Alicia licable Alcohol Use none 12/17/2017 10:11pm Not Applicable Not Alicia licable Drug Use none 12/17/2017 10:11pm Not Applicable Not Ailcia licable Sexual History Heterosexual 03/19/2013 7:25am Not Applicable Not Ap plicable Smoking Status Start Date Stop Date Former smoker Hospital Discharge Instructions No hospital discharge instruction information available. Plan of Care Discharge Date 12/18/17 11:18am Disposition 01 HOME, CUSTODIAL,ASSISTED DAPHNEY [place] Instructions/Education Provided Premature Ventricular Contractions (DC) Prescriptions See Medication Section Functional Status Query Response Date Recorded Moshe Coma Scale Total 15 December 18, 2017 7:36am Patient Behavior Appropriate Cooperative December 18, 2017 7:36am Allergies, Adverse Reactions, Alerts Allergen Type Severity Reaction Status Last Updated Morphine Allergy Unknown Active 08/24/15 Codeine Allergy Unknown Active 08/24/15 Tetracycline Allergy Unknown Active 08/24/15 Doxycycline Allergy Unknown Active 08/24/15 Clindamycin Allergy Unknown Active 08/24/15 Immunizations Query Response on File Recorded Date/Time Hx Diphtheria, Pertussis, Tetanus Vaccination Unknown 08/24/15 12:45pm Hx Influenza Vaccination No 12/17/17 11:35p m Hx Pneumococcal Vaccination No 12/17/17 11: 35pm Vital Signs Acute Vital Signs Vital Response Date/Time Temperature (Fahrenheit) 98.7 degrees F (97.6 - 99.5) 2017 10:07am Temperature Source Temporal Artery 12/18/2017 10:07am Pulse Rate (adult) 68 bpm (60 - 90) 12/18/2017 10:07am Respiratory Rate 18 bpm (12 - 24) 12/18/2017 10:07am Blood Pressure 133/57 mm Hg 12/18/2017 10:07am O2 Sat by Pulse Oximetry 93 % (90 - 100) 12/18/2017 10:0 7am Oxygen Delivery Method Room Air 12/17/2017 11:04p m Pain Intensity 0 12/18/2017 11:00am Height 5 ft 1 in 12/17/2017 8:34pm Weight 134.26 lb 12/17/2017 11:23pm Body Mass Index 25.0 kg/m^2 12/17/2017 11:23pm Results Laboratory Results Test Name Result Units Flags Reference Collection Date/Time Result Date/Time Comments White Blood Count 6.4 K/uL 4.8-10.8 12/17/2017 8:50pm 9:25pm Red Blood Count 4.10 M/uL L 4.20-5.40 12/17/2017 8:50pm 11/28 9:25pm Hemoglobin 12.7 gm/dL 12.0-16.0 12/17/2017 8:50pm 8 9:25pm Hematocrit 38.3 % 37.0-47.0 12/17/2017 8:50pm 8 9:25pm Mean Corpuscular Volume 93.5 fL 81.0-99.0 12/17/2017 8:5 0pm 12/17/2017 9:25pm Mean Corpuscular Hemoglobin 30.9 pg 27.0-31.0 8:50pm 12/17/2017 9:25pm Mean Corpuscular Hemoglobin Concent 33.2 g/dL 30.0 -37.0 12/17/2017 8:50pm 12/17/2017 9:25pm Red Cell Distribution Width 12.3 % 11.5-14.5 8:50pm 12/17/2017 9:25pm Platelet Count 433 K/uL H 130-400 12/17/2017 8:50pm 018 9:25pm Mean Platelet Volume 9.1 fL 7.4-10.4 12/17/2017 8:50pm 12/17/2017 9:25pm Neutrophils (%) (Auto) 41.8 % L 42.2-75.2 12/17/2017 8:50 pm 12/17/2017 9:25pm Lymphocytes (%) (Auto) 47.9 % 20.5-51.1 12/17/2017 8:50 pm 12/17/2017 9:25pm Monocytes (%) (Auto) 6.0 % 0-10 12/17/2017 8:50pm 0 12/17/2017 9:25pm Eosinophils (%) (Auto) 3.0 % 0-3 12/17/2017 8:50pm 12/17/2017 9:25pm Basophils (%) (Auto) 1.2 % H 0.0-1.0 12/17/2017 8:50pm 0 12/17/2017 9:25pm Neutrophils # (Auto) 2.7 K/uL 2.0-6.9 12/17/2017 8:50pm 0 12/17/2017 9:25pm Lymphocytes # (Auto) 3.0 K/uL 1.2-3.4 12/17/2017 8:50pm 0 12/17/2017 9:25pm Monocytes # (Auto) 0.4 K/uL 0.1-0.6 12/17/2017 8:50pm 9:25pm Eosinophils # (Auto) 0.2 K/uL 0.0-0.7 12/17/2017 8:50pm 0 12/17/2017 9:25pm Basophils # (Auto) 0.1 K/uL 0.0-0.2 12/17/2017 8:50pm 9:25pm Random Glucose 244 mg/dL H 70-110 12/17/2017 8:50pm 018 9:22pm Blood Urea Nitrogen 9 mg/dL 18 12/17/2017 8:50pm 9:22pm Creatinine 0.7 mg/dL 0.55-1.02 12/17/2017 8:50pm 8 9:22pm Sodium Level 141 mEq/L 136-145 12/17/2017 8:50pm 8 9:22pm Potassium Level 3.3 mEq/L L 3.5-5.0 12/17/2017 8:50pm 2017 9:22pm Chloride Level 101 mEq/L 98-107 12/17/2017 8:50pm 018 9:22pm Carbon Dioxide Level 23.1 mEq/L 12/17/2017 8:50pm 0 12/17/2017 9:22pm Calcium Level 8.8 mg/dL 8.8-10.5 12/17/2017 8:50pm 018 9:22pm Magnesium Level 1.7 mg/dL L 1.8-2.4 12/17/2017 8:50pm 2017 10:34pm Total Protein 7.5 gm/dL 6.4-8.2 12/17/2017 8:50pm 12/17/19 18 10:34pm Albumin 3.8 gm/dL 3.4-5.0 12/17/2017 8:50pm 12/17/2017 10: 34pm Albumin/Globulin Ratio 1.0 12/17/2017 8:50pm 12/17/2017 10:34pm Total Bilirubin 0.16 mg/dL 0.00-1.00 12/17/2017 8:50pm /2 11/2017 10:34pm Aspartate Amino Transf (AST/SGOT) 34 U/L 15-37 12/17/2017 8:50pm 12/17/2017 10:34pm Alanine Aminotransferase (ALT/SGPT) 33 U/L 12-7 8 12/17/2017 8:50pm 12/17/2017 10:34pm Total Alkaline Phosphatase 125 U/L H 46-116 8:50pm 12/17/2017 10:34pm Total Creatine Kinase 59 U/L 26-192 12/17/2017 8:50pm 12/17/2017 10:34pm B-Type Natriuretic Peptide 64 pg/mL 10-227 8:50pm 12/17/2017 10:34pm 50-75 years of age NT-proBNP values <300 [...] absence of renal failure. Creatine Kinase MB 0.7 ng/mL 0-3.6 12/18/2017 4:45am 5:45am Myoglobin 21.0 NG/ML 10.5-92.5 12/18/2017 4:45am 12/18/2017 5:45am Troponin I < 0.02 ng/mL 0.0-0.2 12/18/2017 4:45am 12/18/2017 5:45am Glomerular Filtration Rate Calc 85.1 mL/min 12/17/2017 8:50pm 12/17/2017 9:22pm Procedures Procedure Status Date Provider(s) Portable x-ray of chest Completed 12/17/17 Nasrin BEVERLYATHAN DO Encounters Encounter Location Arrival/Admit Date Discharge/Depart Date Attending Provider Discharged Inpatient [place] 12/17/17 10:48pm 12/18/17 11:18am MIREYA ACEVEDO MD Recent Diagnosis Chest pain
[2020-05-12] MEDS ORDERED: MIDAZOLAM 5 MG/5 ML (VERSED) VIAL ONE (14:16)
[2020-05-12] MEDS ORDERED: fentaNYL INJECTION 100 MCG/2 ML AMP ONE (14:17)
--- NOTE | 2020-05-12 14:38 | Cardiac Procedure Note-CS/ASA ---
Pre-Procedure Note Pre-Op Procedure Note H&P Reviewed The H&P was reviewed, patient examined and no changes noted. Date H&P Reviewed: May 12, 2020 Time H&P Reviewed: 14:38 Conscious Sedation Pre-Proced Time 14:38 ASA Score 3 For ASA 3 and 4: Consider anesthesia and medical clearance. Also, for patients with a history of failed moderate sedation consider anesthesia. Airway Lungs Heart ASA score ASA 1: a normal healthy patient ASA 2: a patient with a mild systemic disease (mid diabetes, controlled hypertension, obesity ASA 3: a patient with a severe systemic disease that limits activity (angina, COPD, prior Myocardial infarction) ASA 4: a patient with an incapacitating disease that is a constant threat to life (CHF, renal failure) ASA 5: a moribund patient not expected to survive 24 hrs. (ruptured aneurysm) ASA 6: a declared brain- patient whose organs are being harvested. For emergent operations, add the letter E after the classification Mallampati Classification Grade 2 Sedation Plan Analgesia, Amnesia, Plan communicated to team members, Discussed options with patient/fam, Discussed risks with patient/fam The patient is an appropriate candidate to undergo the planned procedure, sedation, and anesthesia. The patient immediately re-assessed prior to indication. NATALIE GALVEZ MD FACP FAC CCDS May 12, 2020 14:38
[2020-05-12] MEDS ORDERED: PATIENT MAY USE OWN MEDS, ALL PO SCH (15:00)
[2020-05-12] MEDS ORDERED: ATOR20TA66 PO (15:05)
--- NOTE | 2020-05-12 15:05 | Discharge Inst-Cardiology ---
Discharge Inst-Cardiac Discharge Medications New Medications: Atorvastatin Calcium (Atorvastatin Calcium) 20 Mg Tablet 20 MG PO HS, #30 TAB 5 Refills Continued Medications: Aspirin (Aspir 81) 81 Mg Tablet.dr 81 MG PO DAILY, TAB Canagliflozin/Metformin HCl (Invokamet Xr 50-1,000 mg Tab) 1 Each Tab.bp.24h 2 EACH PO DAILY Clopidogrel Bisulfate (Plavix) 75 Mg Tablet 75 MG PO DAILY, TAB Cyclobenzaprine HCl (Cyclobenzaprine HCl) 10 Mg Tablet 10 MG PO TID, TAB Fluticasone Propionate (Flonase Allergy Relief) 9.9 Ml [place].susp 1 SPRAY NS PRN, #1 EACH 1 SPRAY EACH NARE DAILY Levothyroxine Sodium (Levothyroxine Sodium) 50 Mcg Tablet 50 MCG PO DAILY, TAB Metoprolol Tartrate (Metoprolol Tartrate) 100 Mg Tablet 100 MG PO BID, TAB Mv-Mn/Iron/FA/Herbal Cmplx#190 (Vitamin D3 Complete Caplet) 1 Each Tablet 1 EACH PO DAILY, TAB [place] 3 Polyunsat Fatty Acids (Fish Oil 1,000 mg Capsule) 1,000 Mg Cap 1000 MG PO DAILY, CAP Omeprazole (Omeprazole) 40 Mg Capsule. 40 MG PO DAILY, NATALIE VALDOVINOS MD [facility] CCDS May 12, 2020 15:05
--- NOTE | 2020-05-12 15:08 | Discharge Inst-Post CATH ---
Discharge Inst-CATH/EP Post Cardiac Cath/EP D/C Inst Follow Up/Plan F/u with Dr Conley in 2 weeks ACTIVITY * Go Home directly and rest. * Limit activity of the leg (or wrist if it was used) for 7 days including aerobics, swimming, jogging, bicycling, etc. * Restrict stair-climbing for 7 days if possible, if not, climb up with your n on-cath leg, then bring together on the same step. * Avoid lifting, pushing, pulling or excessive movement of the affected ex tremity for 7 days. * Customary sexual activity may be resumed after 2 days-use caution not to use a position that strains or causes pain to the affected extremity. * No driving for 24 hours. * NO SMOKING. * Avoid straining for bowel movements for 7 days. * Gentle walking on level ground is allowed. * Returning to work will depend on the type of procedure and the results. Your doctor will discuss this with you. CALL YOUR DOCTOR FOR ANY OF THE FOLLOWING: *If bleeding from the puncture site occurs- Apply gentle pressure to site with clean cloth and call your doctor or EMS. * If a knot or lump forms under the skin, increases in size, or causes pain. * If bruising appears to be worsening or moving further down your leg instead of disappearing. * Temperature above 101 F. CARE OF YOUR GROIN INCISION; * Bruising or purple discoloration of the skin near the puncture site is common. * You may shower only, no bathtub bathing for 5 days. Be careful to avoid slipping as your leg may feel stiff. * If a closure device was used on your femoral artery, please see the attached guide regarding care of the device and your leg. * Leave dressing on FOR 24 hours. CARE OF YOUR WRIST INCISION; * Bruising or purple discoloration of the skin near the puncture site is common. * You may shower. * DO NOT submerge wrist. * Leave dressing on FOR 24 hours. NATALIE CONLEY MD FACP FAC CCDS May 12, 2020 15:08
--- NOTE | 2020-05-12 15:49 | CARDIAC CATHETERIZATION ---
DATE OF SERVICE: 05/12/2020 CARDIAC CATHETERIZATION REPORT The patient is a 64-year-old lady, who has multiple coronary artery disease risk factors and has symptoms of palpitations and chest discomfort and who is known to have moderate coronary artery disease based on previous cardiac catheterization in [place], [place]. Because of her history and symptoms, cardiac catheterization was carried out today after having obtained informed consent. DESCRIPTION OF PROCEDURE: She was brought to the cardiac catheterization laboratory in a fasting state. Right groin was prepared and draped in the usual sterile fashion. Lidocaine 1% was used for local anesthesia. Modified Seldinger technique was used to advance a 5-Bulgarian sheath in the right femoral artery, 5-Bulgarian JL3.5 catheter was used for left coronary angiography. A 5-Bulgarian JR4 catheter was used for right coronary angiography, 5-Bulgarian pigtail catheter was used for left heart catheterization and left ventricular angiography. Angiography of the right femoral artery was carried out through the sheath. Mynx was used to achieve hemostasis. She tolerated the procedure well. HEMODYNAMICS: Left ventricular end-diastolic pressure following coronary angiography was 11 mmHg. There is no significant pressure gradient on pullback across the aortic valve. Ascending aortic pressure was 134/65 with a mean of 79 mmHg. CORONARY ANGIOGRAPHY: Coronary calcification is present. Left main coronary artery does not exhibit significant obstructive disease. Left anterior descending artery has diffuse moderate proximal disease. First diagonal of the left anterior descending artery is of a small caliber and has moderate proximal disease. The left circumflex artery has mild diffuse plaque. The first obtuse marginal branch is high in origin, very small in caliber, and has diffuse moderate disease. Right coronary artery is dominant and has mild plaques. LEFT VENTRICULAR ANGIOGRAPHY: Left ventricular angiography was carried out in the right anterior oblique projection. Global left ventricular systolic function normal. No regional wall motion abnormalities seen. Left ventricular ejection fraction approximately 60%. CONCLUSIONS: 1. Mild to moderate diffuse coronary artery disease. 2. Normal global left ventricular systolic function with ejection fraction of 60% to 65%. 3. Normal left ventricular end-diastolic pressure. DISCUSSION AND RECOMMENDATIONS: Based on results of the study, it appears appropriate to continue a conservative approach. Risk factor modification has been reviewed. Current regimen is being continued. Outpatient followup is advised. Job ID: [id number] DocumentID: [id number] Dictated Date: 05/12/2020 15:01:44 Safety Pin Assembling Machine Operator Date: 05/12/2020 15:49:03 Dictated By: NATALIE GALVEZ MD, MA, FACP, FACC, MTDD
== END 2020-05-12 18:18 | disposition home or self-care (01) ==
LOC: CATH 11:06 → SDC 15:30 → CATH 18:18
PROVIDERS: ATTEND Internal Medicine Cardiovascular Disease
DX: I25.10 Atherosclerotic heart disease of native coronary artery without angina pectoris (principal); E11.9 Type 2 diabetes mellitus without complications; I10 Essential (primary) hypertension; E78.5 Hyperlipidemia, unspecified; I49.3 Ventricular premature depolarization; Z88.1 Allergy status to other antibiotic agents; Z88.5 Allergy status to narcotic agent; Z79.82 Long term (current) use of aspirin; Z79.899 Other long term (current) drug therapy; Z90.49 Acquired absence of other specified parts of digestive tract; Z87.891 Personal history of nicotine dependence; Z82.3 Family history of stroke; Z80.9 Family history of malignant neoplasm, unspecified
CPT/HCPCS: 80053; 80061; 85027; 85610; 85730; 87081; 93458; C1760; C1894; 36415